=== PATIENT | male | born 1950 | race Caucasian/White ===

== ENCOUNTER 2023-11-22 06:31 | Emergency (ER) | payer BC, MEDICARE ==
[~2023-11-22] VITALS: Ht 165.1 cm; Wt 63.5 kg
[2023-11-22 07:40] LABS: BASO % 0.5 % (0.0-1.0); EOS # 0.1 10^3/uL (0.0-0.5); EOS % 1.2 % (0.0-3.0); HEMATOCRIT 34.3 % (42.0-52.0); LYMPH # 1.1 10^3/uL (1.5-5.0); LYMPH % 12.7 % (24.0-44.0); MEAN CORPUSCULAR HEMOGLOBIN 21.4 pg (27.0-33.0); MEAN CORPUSCULAR HGB CONC 32.1 g/dl (32.0-36.5); MEAN CORPUSCULAR VOLUME 66.9 fl (80.0-96.0); MONO % 11.3 % (2.0-8.0); NEUTROPHILS # 6.3 10^3/uL (1.5-8.5); NEUTROPHILS % 74.1 % (36.0-66.0); PLATELET COUNT, AUTOMATED 125 10^3/uL (150-450); RED BLOOD COUNT 5.13 10^6/uL (4.30-6.10); WHITE BLOOD COUNT 8.6 10^3/uL (4.0-10.0)
[2023-11-22] MEDS ORDERED: PRAV20TA2 (07:45)
[2023-11-22 07:48] LABS: LIPASE 45 U/L (12-53)
[2023-11-22 07:50] LABS: ALBUMIN 3.8 G/DL (3.2-5.2); ALKALINE PHOSPHATASE 44 U/L (46-116); ALT/SGPT 25 U/L (7.0-40); AST/SGOT 23 U/L (<34); BILIRUBIN,DIRECT 0.3 MG/DL (<0.4); BLOOD UREA NITROGEN 27 MG/DL (9-23); CALCIUM LEVEL 8.8 MG/DL (8.3-10.6); CARBON DIOXIDE LEVEL 27 MMOL/L (20-31); CHLORIDE LEVEL 108 MMOL/L (98-107); CREATININE FOR GFR 2.14 MG/DL (0.70-1.30); GLOMERULAR FILTRATION RATE 32.2 (>42); GLUCOSE, FASTING 98 MG/DL (74-106); POTASSIUM SERUM 4.1 MMOL/L (3.5-5.1); SODIUM LEVEL 140 MMOL/L (136-145); TOTAL PROTEIN 6.5 G/DL (5.7-8.2)
[2023-11-22 08:10] LABS: IRON (FE) 30 UG/DL (65-175); PERCENT SATURATION 10.7 % (19.7-50.0); TOTAL IRON BINDING CAPACITY 281 UG/DL (250-425)
[2023-11-22 08:12] LABS: FERRITIN 163.8 NG/ML (10.5-307.3); FOLATE > 24.0 NG/ML (>5.4); VITAMIN B12 LEVEL 1091 PG/ML (211-911)
[2023-11-22] MEDS: NS 1,000 ML IV ONE (08:30)
[2023-11-22 08:56] LABS: LDH LACTATE DEHYDROGENASE 202 U/L (120-246)
[2023-11-22] MEDS: GASTROGRAFIN SOLUTION 30ML PO SCH (09:00)
[2023-11-22] MEDS: KETOROLAC 30 MG/ML 1ML VIAL IV ONE (11:54)
[2023-11-22] MEDS ORDERED: HYDR-3713 PO (13:12)
[2023-11-22] MEDS ORDERED: ONDA-282 PO (13:12)
[2023-11-22] MEDS ORDERED: FERR325T3 PO (13:12)
[2023-11-22] MEDS ORDERED: FLOM0.4C39 PO (13:12)
[2023-11-22 13:31] VITALS: BP 118/67; TEMP 97.4; O2SAT 97
[2023-11-25] MEDS ORDERED: AMPI500C9 PO (09:44)
== END 2023-11-22 13:33 | disposition home or self-care (01) ==
LOC: M ED 06:31
DX: N20.1 Calculus of ureter (principal); N28.9 Disorder of kidney and ureter, unspecified; N40.1 Benign prostatic hyperplasia with lower urinary tract symptoms; D50.9 Iron deficiency anemia, unspecified; D56.1 Beta thalassemia; E78.5 Hyperlipidemia, unspecified; F10.10 Alcohol abuse, uncomplicated; Z79.83 Long term (current) use of bisphosphonates; Z79.52 Long term (current) use of systemic steroids; Z79.899 Other long term (current) drug therapy
CPT/HCPCS: 74176; 80048; 80076; 80503; 81001; 82607; 82728; 82746; 83550; 83615; 83690; 85025; 85046; 87088; 87186; 96361; 96374; 99285; J1885; Q9963